=== PATIENT | female | born 1990 | race Hispanic/Latino ===

== ENCOUNTER 2021-01-26 07:36 | Outpatient (CLI) | payer BC, OTHER ==
[2021-01-27 01:17] LABS: SARS-CoV-2 PCR by NAA Not Detected (NotDetected)
== END 2021-01-26 07:37 | disposition home or self-care (01) ==
LOC: CSHLAB 07:36
PROVIDERS: ATTEND Obstetrics & Gynecology
DX: Z20.822 Contact with and (suspected) exposure to COVID-19 (principal)
CPT/HCPCS: 87635; U0003; U0005

== ENCOUNTER 2021-01-29 05:30 | Inpatient (IN) | payer BC, OTHER ==
[~2021-01-29 05:30] MED LIST: Acetaminophen 500 MG TAB PO PRN; Butorphanol Tartrate 1 MG/ML VIAL SLOW IVP PRN; Carboprost 250 MCG/ML AMP IM PRN; Diphenoxylate HCl/Atropine Tablet PO PRN; Docusate 100 MG CAP PO PRN; HYDROcodone/Acetaminophen 5/325 mg Tablet PO PRN; Ibuprofen 800 MG TAB PO PRN; Lidocaine 1% (PF) 30 ML VIAL SC PRN; Methylergonovine 0.2 MG/ML VIAL IM PRN; Misoprostol 200 MCG TAB PR PRN; NS / Oxytocin 40 units/1000ml 1,000 ML IV PRN; Ondansetron PF 4 MG/2 ML Vial IVP PRN; Promethazine HCl 25 MG/ML VIAL IM PRN; hydrALAZINE 20 MG/ML VIAL SLOW IVP PRN
[2021-01-29 06:04] VITALS: BMI 31.2
[2021-01-29] MEDS ORDERED: Penicillin G Potassium 5 MILL.UNITS in Sodium Chloride 0.9% 100 ML IVPB SCH (06:15)
[2021-01-29] MEDS: Lactated Ringer's 1,000 ML IV SCH ×3 (06:42→20:21)
[2021-01-29] MEDS ORDERED: Misoprostol 100 MCG TAB VAG SCH (07:15)
[2021-01-29 07:42] LABS: Hemoglobin 10.7 g/dL (12.0-15.5); Mean Corpuscular HGB CONC 32.4 g/dL (32.0-36.0); Mean Corpuscular Hemoglobin 26.8 pg (27.0-33.0); Mean Corpuscular Volume 82.7 fl (81.6-98.3); Mean Platelet Volume 10.3 fl (7.4-10.4); Platelet Count 233 10x3/uL (150-450); RBC Distribution Width 14.4 % (11.5-14.5); Red Blood Cell (RBC) Count 3.99 10x6/uL (3.90-5.03); White Blood Cell (WBC) Count 6.8 10x3/uL (3.5-10.5)
[2021-01-29 08:25] LABS: Hep B Surf Ag Non-Reactive S/CO (NonReactive)
[2021-01-29 08:28] LABS: Syphilis Antibody Nonreactive (Nonreactive); Syphilis Antibody Index 0.06 S/CO (<1.00 Non-Reactive)
[2021-01-29 09:42] LABS: HBSAg Index 0.17 S/CO (0-0.99)
[2021-01-29] MEDS ORDERED: Penicillin G 2.5 MILL.units 2.5 MILL.UNITS in Premix Bag 1 BAG IVPB SCH (11:00)
[2021-01-29] MEDS ORDERED: Penicillin G Potassium 5 MILL.UNITS VIAL ONE (13:53)
[2021-01-29] MEDS ORDERED: NS w/ Oxytocin 30 units 500 ML ONE ×2 (15:28→23:23)
[2021-01-29] MEDS ORDERED: Fentanyl 4 mcg/Bup 0.1% Cadd 100 ML ONE (18:02)
[2021-01-29] MEDS ORDERED: Ondansetron PF 4 MG/2 ML Vial IVP PRN ×2 (18:39→23:02)
[2021-01-29] MEDS ORDERED: Naloxone HCl 0.4 mg/ml Vial IVP PRN ×2 (18:39)
[2021-01-29] MEDS ORDERED: Acetaminophen 325 MG TAB PO PRN (18:39)
[2021-01-29] MEDS ORDERED: Lactated Ringer's 500 ML IV PRN (18:39)
[2021-01-29] MEDS ORDERED: Promethazine HCl 25 MG/ML VIAL IM PRN ×2 (18:39→23:02)
[2021-01-29] MEDS ORDERED: diphenhydrAMINE 50 MG/ML VIAL IVP PRN (18:39)
[2021-01-29] MEDS ORDERED: Communication Order-Pharmacy FS SCH (18:45)
[2021-01-29] MEDS ORDERED: Fentanyl 4 mcg/Bupivacaine 0.1% Cassette 100 ML EPIDURAL SCH (18:45)
[2021-01-29] MEDS ORDERED: ePHEDrine Sulfate 50 MG/10 ML VIAL SLOW IVP PRN (19:04)
[2021-01-29] MEDS ORDERED: Hydrocerin (Eucerin) Cream 120 gm Jar TOP PRN (19:04)
[2021-01-29] MEDS ORDERED: Milk Of Magnesia 30 ML UDCUP PO PRN (23:02)
[2021-01-29] MEDS ORDERED: Lanolin Ointment 7 GM TUBE TOP PRN (23:02)
[2021-01-29] MEDS ORDERED: Preparation H Ointment 28 GM TUBE PR PRN (23:02)
[2021-01-29] MEDS ORDERED: Bisacodyl 10 MG SUPP PR PRN (23:02)
[2021-01-29] MEDS ORDERED: diphenhydrAMINE 25 MG CAP PO PRN (23:02)
[2021-01-29] MEDS ORDERED: Methylergonovine 0.2 MG/ML VIAL IM PRN (23:02)
[2021-01-29] MEDS ORDERED: Benzocaine-Menthol 82.5 ML CAN TOP PRN (23:02)
[2021-01-29] MEDS ORDERED: HYDROcodone/Acetaminophen 5/325 mg Tablet PO PRN ×2 (23:02)
[2021-01-29] MEDS ORDERED: Zolpidem Tartrate 5 MG TAB PO PRN (23:02)
[2021-01-29] MEDS ORDERED: hydrALAZINE 20 MG/ML VIAL SLOW IVP PRN (23:02)
[2021-01-29] MEDS ORDERED: NS w/ Oxytocin 30 units 500 ML IV SCH (23:15)
[2021-01-30] MEDS: Ibuprofen 800 MG TAB PO SCH ×4 (04:00→22:04)
[2021-01-30 06:37] LABS: Hemoglobin 10.3 g/dL (12.0-15.5); Mean Corpuscular HGB CONC 31.9 g/dL (32.0-36.0); Mean Corpuscular Hemoglobin 26.8 pg (27.0-33.0); Mean Corpuscular Volume 84.1 fl (81.6-98.3); Mean Platelet Volume 10.6 fl (7.4-10.4); Platelet Count 200 10x3/uL (150-450); RBC Distribution Width 14.2 % (11.5-14.5); Red Blood Cell (RBC) Count 3.84 10x6/uL (3.90-5.03)
[2021-01-30] MEDS: Docusate Calcium (SURFAK) 240 MG CAP PO SCH ×2 (08:41→22:04)
[2021-01-30] MEDS: Prenatal Vitamin 1 TAB PO SCH (08:41)
[2021-01-30] MEDS ORDERED: Measles/Mumps/Rubella 10 MCG/0.5 ML VIAL SC ONE (09:00)
[2021-01-30] MEDS ORDERED: Adacel (T-DAP) 0.5 ML SYRINGE IM ONE (09:00)
[2021-01-30] MEDS ORDERED: Varicella virus, LIVE 0.5 ML VIAL SC ONE (09:00)
[2021-01-30] MEDS: Ferrous Sulfate 325 MG TAB PO SCH (18:43)
[2021-01-30] MEDS ORDERED: ePHEDrine Sulfate 50 MG/10 ML VIAL ONE (19:33)
[2021-01-31] MEDS: Ibuprofen 800 MG TAB PO SCH ×2 (05:58→14:14)
[2021-01-31] MEDS: Ferrous Sulfate 325 MG TAB PO SCH (08:05)
[2021-01-31] MEDS: Prenatal Vitamin 1 TAB PO SCH (08:06)
[2021-01-31] MEDS: Docusate Calcium (SURFAK) 240 MG CAP PO SCH (08:06)
[2021-01-31 12:46] VITALS: BP 103/53; TEMP 98.8
== END 2021-01-31 14:30 | disposition home or self-care (01) | DRG 807 ==
LOC: CSHLD 05:38 → CSHPP 01-30 00:20
PROVIDERS: ADMIT Obstetrics & Gynecology; ATTEND Obstetrics & Gynecology
PROC: 10E0XZZ Delivery of Products of Conception, External Approach (ICD-10-PCS; principal; 2021-01-29)
DX: O69.81X0 Labor and delivery complicated by cord around neck, without compression, not applicable or unspecified (principal); Z37.0 Single live birth; O70.0 First degree perineal laceration during delivery; Z3A.39 39 weeks gestation of pregnancy; Z20.822 Contact with and (suspected) exposure to COVID-19
CPT/HCPCS: 36415; 51702; 85027; 86780; 86850; 86900; 86901; 87340; 87635; J2540; J2590; J3490; J7030; U0003; U0005